=== PATIENT | male | born 1970 | race Two or more races ===

== ENCOUNTER 2017-11-18 07:27 | Emergency (ER) | payer SELFPAY ==
[~2017-11-18] VITALS: Ht 182.9 cm; Wt 97.5 kg
[~2017-11-18 07:27] MED LIST: LAMO150T PO; PHEN100C4 PO
--- NOTE | 2017-11-18 07:30 | NUR ---
BIB [facility] FROM HOME, WITNESSED SEIZURE BY , BLOOD SUGAR 121. A/OX 4 AT THIS TIME. BREATHING EVEN AND UNLABORED. NO SOB, NAD, VITALS STABLE. IV ESTABLISHED IN FIELD, ON RFA, 18G. SAFETY AND COMFORT MEASURES IN PLACE. AWAITING MD ORDERS. Addendum: 11/18/17 at 0750 by TANIA CORRECTION: IV ON LFA, 18G.
--- NOTE | 2017-11-18 07:42 | NUR ---
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
[2017-11-18 08:09] LABS: CALCIUM, SERUM 8.7 mg/dL (8.5-10.1); CREATININE 1.1 mg/dL (0.6-1.3)
[2017-11-18] MEDS ORDERED: HYDROCODONE/APAP 5/325MG 1 EACH TABLET ONE (08:50)
[2017-11-18] MEDS ORDERED: HYDROCODONE/APAP 5/325MG 1 EACH TABLET PO ONE (09:00)
[2017-11-18 09:03] VITALS: BP 111/68
--- NOTE | 2017-11-18 09:05 | NUR ---
IV removed. Catheter intact and site benign. Pressure and 4x4 applied to site. No bleeding noted. Patient discharged to home in stable condition. Written and verbal after care instructions given. Patient verbalizes understanding of instruction.
== END 2017-11-18 09:04 | disposition home or self-care (01) ==
LOC: ER 07:28
DX: G40.909 Epilepsy, unspecified, not intractable, without status epilepticus (principal)
CPT/HCPCS: 36415; 80048-TC; 80185-TC; 82542; A4606; Z7610

== ENCOUNTER 2021-03-10 09:14 | Emergency (ER) | payer BC, MEDICAID, OTHER ==
[~2021-03-10] VITALS: Ht 185.4 cm; Wt 80.7 kg
[~2021-03-10 09:14] MED LIST changes: -LAMO150T PO; +LAMO150T6 PO
--- NOTE | 2021-03-10 09:26 | NUR ---
[id number], c/o nausea vomiting, had seizure episode earlier, no oral trauma, zofran 4 mg given on scene. On room air, breathing evenly and unlabored. connected to the monitor and pulse ox. kept comfortable, will continue to monitor accordingly.
--- NOTE | 2021-03-10 09:27 | NUR ---
IV started and blood drawned and sent to the lab.
[2021-03-10 09:40] LABS: BASOPHILS % (AUTO) 0.2 % (0.0-2.0); EOSINOPHILS % (AUTO) 0.1 % (0.0-6.0); HEMATOCRIT 48 % (39-51); HEMOGLOBIN 16.3 g/dL (13.5-17.5); LYMPHOCYTES # (AUTO) 1.1 K/uL (0.8-4.8); LYMPHOCYTES % (AUTO) 8.2 % (20.0-44.0); MEAN CORPUSCULAR HGB CONC 34 g/dl (31.0-36.0); MEAN CORPUSCULAR VOLUME 94 fL (80-96); MONOCYTES # (AUTO) 0.3 K/uL (0.1-1.30); MONOCYTES % (AUTO) 2.5 % (2.0-12.0); NEUTROPHILS # (AUTO) 11.7 K/uL (1.8-8.9); PLATELET COUNT (AUTO) 192 K/uL (150-450); RED BLOOD CELL COUNT(AUTO) 5.07 MIL/uL (4.5-6.0); WHITE BLOOD COUNT (AUTO) 13.2 K/uL (4.3-11.0)
[2021-03-10 10:22] LABS: CALCIUM, SERUM 8.6 mg/dL (8.5-10.1); POTASSIUM 3.9 mmol/L (3.5-5.1)
[2021-03-10 10:28] LABS: ALBUMIN 4.3 g/dL (3.4-5.0); BILIRUBIN,DIRECT 0.2 mg/dL (0.0-0.2); TOTAL PROTEIN, SERUM 7.8 g/dL (6.4-8.2)
[2021-03-10] MEDS ORDERED: ONDANSETRON HCL/PF 4 MG/2 ML VIAL ONE (11:00)
[2021-03-10] MEDS ORDERED: ONDANSETRON HCL/PF - ER 4 MG/2 ML VIAL IV ONE (11:00)
[2021-03-10] MEDS ORDERED: LEVETIRACETAM (500MG) 500 MG in IV NS 0.9% 100 ML IV SCH (11:00)
[2021-03-10] MEDS ORDERED: ACETAMINOPHEN ES 500 MG TABLET ONE (11:06)
[2021-03-10] MEDS ORDERED: ACETAMINOPHEN 325 MG TABLET PO ONE (11:30)
[2021-03-10 13:09] VITALS: BP 128/77
--- NOTE | 2021-03-10 13:09 | NUR ---
Patient discharged to home in stable condition. Written and verbal after care instructions given. Patient verbalizes understanding of instruction.IV removed. Catheter intact and site benign. Pressure and 4x4 applied to site. No bleeding noted.
== END 2021-03-10 13:09 | disposition home or self-care (01) ==
LOC: ER 09:22
DX: G40.909 Epilepsy, unspecified, not intractable, without status epilepticus (principal); R51.9 Headache, unspecified; Z79.899 Other long term (current) drug therapy
CPT/HCPCS: 36415; 70450; 80048; 80076; 85025; 96365; 96375; 99284; J1953; J2405 ×2; J7030